=== PATIENT | female | born 1995 | race Caucasian/White ===

== ENCOUNTER 2023-02-03 21:40 | Emergency (ER) | payer SELFPAY ==
[2023-02-03] MEDS ORDERED: Ipratropium/Albuterol 3 ML NEB ONE (22:25)
[2023-02-03] MEDS ORDERED: Dexamethasone 4 MG TAB ONE (22:28)
[2023-02-03] MEDS ORDERED: Dexamethasone 10 MG/ML VIAL ONE (22:31)
== END 2023-02-03 22:50 | disposition home or self-care (01) ==
LOC: CSHERS 21:40
DX: R06.02 Shortness of breath (principal)
CPT/HCPCS: 99284; J1100; J7620; J8540